=== PATIENT | male | born 1985 | race Caucasian/White ===

== ENCOUNTER 2017-09-05 13:16 | Emergency (ER) | payer MEDICAID ==
[~2017-09-05] VITALS: Ht 177.8 cm; Wt 79.0 kg
[~2017-09-05 13:16] MED LIST: CYCL-1 PO; METO-292 PO; OMEP40CA37 PO; ONDA4TAB6 PO
[2017-09-05 13:35] VITALS: BP 124/76
[2017-09-05] MEDS ORDERED: ibuprofen tablet 400 MG TABLET PO ONE (14:45)
== END 2017-09-05 15:15 | disposition home or self-care (01) ==
LOC: ER 13:17
DX: S93.401A Sprain of unspecified ligament of right ankle, initial encounter (principal); F12.90 Cannabis use, unspecified, uncomplicated; Z56.0 Unemployment, unspecified; Z88.6 Allergy status to analgesic agent; Z79.899 Other long term (current) drug therapy; W10.8XXA Fall (on) (from) other stairs and steps, initial encounter; Y93.01 Activity, walking, marching and hiking; Y92.89 Other specified places as the place of occurrence of the external cause; Y99.9 Unspecified external cause status
CPT/HCPCS: 29515; 73610; 99284